=== PATIENT | male | born 1980 | race Caucasian/White ===

== ENCOUNTER 2019-06-28 12:49 | Emergency (ER) | payer OTHER, SELFPAY ==
[2019-06-28 13:04] VITALS: BP 132/76; PULSE 64; RESP 16; TEMP 36.6; O2SAT 99
--- NOTE | 2019-06-28 13:25 | ED.URI ---
HPI - URI/Sore Throat General Chief Complaint: Upper Respiratory Infection Stated Complaint: Cold/Flu symptoms History of Present Illness HPI Narrative: This is a 35-year-old old male comes in complaining body aches sore throat and fever off and on since . Patient states last week his son had influenza B is wondering if he had influenza or if he had sinus infection. Related Data Home Medications Medication Instructions Recorded Confirmed atorvastatin 10 mg PO DAILY 06/28/19 06/28/19 levothyroxine 150 mcg PO DAILY 06/28/19 06/28/19 metoprolol tartrate 50 mg PO DAILY 06/28/19 06/28/19 Allergies Allergy/AdvReac Type Severity Reaction Status Date / Time No Known Allergies Allergy Unknown X Verified 06/28/19 13:30 Review of Systems Review of Systems: Narrative: CONSTITUTIONAL: Reports s fever, chills, or sweats. Fatigue and malaise EYES: Denies visual changes, redness, or discharge. ENT: Reports rhinorrhea, congestion, sore throat, or otalgia. CARDIOVASCULAR:Denies chest pain, palpitations, or edema. RESPIRATORY: Reports cough or dyspnea. GASTROINTESTINAL: Denies abdominal pain, nausea, vomiting, or diarrhea. GENITOURINARY: Denies dysuria or hematuria. SKIN:[Denies rash or itching. MUSCULOSKELETAL:Denies back pain, joint pain, or myalgia. NEUROLOGIC: Denies headache, numbness, or weakness. PSYCHIATRIC:Denies anxiety or depression PMFSH Family History Family History (Updated 04/03/18 @ 10:24 by DOCTOR UNKNOWN) Mother Family history of thyroid disease Family history of elevated blood lipids Father Diabetes mellitus Hypertension Family history of elevated blood lipids Other Family history of malignant neoplasm Social History Social History Smoking status: Former smoker Alcohol intake: current Comments At time as signature, I have reviewed and agree with nursing past medical, social, surgical and family history. Please see nursing chart for further information. There is no relevant family history pertinent to the presenting complaint. Exam Narrative: Exam Narrative: GENERAL:Well-appearing, well-nourished, and in no acute distress. Malaise and fatigue HEAD:Normocephalic, atraumatic. EYES: PERRLA and EOMI. ENT: Nares erythema, moderate clear rhinorrhea or epistaxis. Mucous membranes moist. Pharyngeal erythema NECK: Supple. CHEST: Clear to auscultation. No respiratory distress. HEART: Regular rate and rhythm. No murmur heard. Normal peripheral pulses. ABDOMEN: Soft, nontender, nondistended, normal active bowel sounds. EXTREMITIES: Normal range of motion. No edema. SKIN: Warm, dry, no rash. NEURO: No focal deficits. Alert and oriented x3. Course Vital Signs Vital signs: Vital Signs Temperature 97.9 F 06/28/19 13:04 Pulse Rate 64 06/28/19 13:04 Respiratory Rate 16 06/28/19 13:04 Blood Pressure 132/76 06/28/19 13:04 Pulse Oximetry 99 06/28/19 13:04 Temperature 97.9 F 06/28/19 13:04 Pulse Rate 64 06/28/19 13:04 Respiratory Rate 16 06/28/19 13:04 Blood Pressure 132/76 06/28/19 13:04 Pulse Oximetry 99 06/28/19 13:04 Discharge Plan Discharge Clinical Impression: Influenza Patient Disposition: Home, Self-Care Condition: Stable Instructions: Antibiotic Form, Influenza (ED) Prescriptions: New ondansetron 4 mg tablet,disintegrating 4 mg PO Q8H PRN (Reason: nausea and vomiting) Qty: 10 RF: 0 ibuprofen 800 mg tablet 800 mg PO TID PRN (Reason: pain) Qty: 30 RF: 0 No Action atorvastatin 10 mg Tablet 10 mg PO DAILY RF: 0 levothyroxine 150 mcg Tablet 150 mcg PO DAILY RF: 0 metoprolol tartrate 50 mg Tablet 50 mg PO DAILY RF: 0 Follow-up/Referrals: Guillermina De La Paz MD [Primary Care Provider] - Stand Alone Forms: Work/School Release IP Time of Disposition: 13:30 Discharge Date/Time: 06/28/19 13:34
== END 2019-06-28 13:34 | disposition home or self-care (01) ==
PROVIDERS: Emergency Provider Nurse Practitioner Family; PCP Internal Medicine
DX: J11.1 Influenza due to unidentified influenza virus with other respiratory manifestations (principal); Z87.891 Personal history of nicotine dependence
CPT/HCPCS: 87804; 99213; G0463

== ENCOUNTER 2019-09-11 08:18 | Outpatient (CLI) | payer OTHER, SELFPAY ==
[2019-09-11 08:34] LABS: Add Urine Microscopic? YES; Appearance Urine Clear (Clear); Bilirubin Urine Negative (Negative); Blood Urine 1+ (Negative); Color Urine Yellow (Yellow); Glucose Urine UA Negative (Negative); Ketones Urine Negative (Negative); Leukocyte Esterase Ur Negative LEU/UL (Negative); Nitrate Urine Negative (Negative); Protein Urine Negative (Negative); Specific Grav Ur >= 1.030 (1.010-1.020); Urobilinogen Urine 0.2 mg/dL (0.2-1.0); pH Urine 5.5 (5.0-8.0)
[2019-09-11 08:46] LABS: Bacteria Urine 2+ /hpf; Mucus Urine Few /lpf; Squamous Epithelial Cell Urine Few /hpf (Few); WBC Urine 0-3 /hpf (0-3)
[2019-09-11 09:05] LABS: Hemoglobin A1C 5.5 % (<5.7)
[2019-09-11 09:31] LABS: Alanine Aminotransferase 78 U/L (16-63); Albumin Level 4.3 g/dL (3.4-5.0); Alkaline Phosphatase 56 U/L (46-116); Anion Gap 14.3 mmol/L (7-16); Aspartate Amino Transferase 36 U/L (15-37); Bilirubin,Total 0.4 mg/dL (0.00-1.00); Blood Urea Nitrogen 22 mg/dL (7-18); Calcium 9.3 mg/dL (8.5-10.1); Carbon Dioxide 28 mmol/L (21-32); Chloride 106 mmol/L (98-108); Cholesterol 153 mg/dL (0-200); Creatine Kinase 568 U/L (39-308); Estimated Glomerular Filt Rate > 60; Glucose 95 mg/dL (70-99); HDL Direct 28 mg/dL (40-60); LDL Cholesterol Calculated 91 mg/dL (<130); Osmolality Calculated 301 mOsm/kg (285-295); Potassium 4.3 mmol/L (3.5-5.1); Sodium 144 mmol/L (136-145); Total Protein 6.9 g/dL (6.4-8.2); Triglycerides 169 mg/dL (0-150)
== END 2019-09-11 08:19 | disposition home or self-care (01) ==
LOC: CHSLAB 08:20
PROVIDERS: PCP Internal Medicine; Visit Provider Internal Medicine
DX: E03.9 Hypothyroidism, unspecified (principal); E78.5 Hyperlipidemia, unspecified; R73.01 Impaired fasting glucose
CPT/HCPCS: 36415; 80053; 80061; 81001; 82550; 83036

== ENCOUNTER 2020-01-29 09:38 | Outpatient (CLI) | payer OTHER, SELFPAY ==
[2020-01-29 10:28] LABS: Cholesterol 114 mg/dL (0-200); HDL Direct 38 mg/dL (40-60); LDL Cholesterol Calculated 54 mg/dL (<130); Triglycerides 108 mg/dL (0-150)
== END 2020-01-29 09:39 | disposition home or self-care (01) ==
LOC: CHSLAB 09:39
PROVIDERS: PCP Internal Medicine; Visit Provider Specialist
DX: I25.118 Atherosclerotic heart disease of native coronary artery with other forms of angina pectoris (principal); Z13.220 Encounter for screening for lipoid disorders; Z79.899 Other long term (current) drug therapy
CPT/HCPCS: 36415; 80061

== ENCOUNTER 2020-10-24 11:10 | Outpatient (CLI) | payer OTHER, SELFPAY ==
[2020-10-24 11:28] LABS: Basophils Absolute Auto 0.02 K/mm3 (0.00-0.10); Basophils Percent Auto 0.4 % (0.0-1.0); Eosinophils Absolute Auto 0.27 K/mm3 (0.02-0.50); Eosinophils Percent Auto 5.4 % (1.0-6.0); Hematocrit 44.6 % (40.0-54.0); Hemoglobin 15.6 g/dL (14.0-18.0); Immature Granulocyte Absolute 0.02 K/mm3 (0.00-0.00); Immature Granulocyte Percent A 0.4 % (0.0-0.0); Lymphocytes Absolute Auto 1.65 K/mm3 (1.10-4.50); Lymphocytes Percent Auto 32.8 % (18.0-42.0); Mean Corpuscular Hemoglobin 29.5 pg (27.0-31.0); Mean Corpuscular Volume 84.3 fL (78.0-102.0); Monocytes Absolute Auto 0.42 K/mm3 (0.10-0.90); Monocytes Percent Auto 8.3 % (2.0-11.0); Neutrophils Absolute Auto 2.7 K/mm3 (1.7-7.2); Neutrophils Percent Auto 52.7 % (50.0-70.0); Platelet Count Result 220 K/mm3 (150-420); Red Blood Count 5.29 M/mm3 (4.70-6.10); Red Cell Distribution Width 12.3 % (11.6-14.4)
[2020-10-24 11:47] LABS: Hemoglobin A1C 5.4 % (<5.7)
[2020-10-24 12:08] LABS: Alanine Aminotransferase 67 U/L (16-63); Albumin Level 4.3 g/dL (3.4-5.0); Alkaline Phosphatase 46 U/L (46-116); Anion Gap 13 mmol/L (8-16); Aspartate Amino Transferase 32 U/L (15-37); Bilirubin,Total 0.8 mg/dL (0.00-1.00); Blood Urea Nitrogen 18 mg/dL (7-18); Calcium 9.4 mg/dL (8.5-10.1); Carbon Dioxide 27 mmol/L (21-32); Chloride 105 mmol/L (98-108); Cholesterol 138 mg/dL (0-200); Creatine Kinase 507 U/L (39-308); Estimated Glomerular Filt Rate > 60; Glucose 95 mg/dL (70-99); HDL Direct 34 mg/dL (40-60); LDL Cholesterol Calculated 61 mg/dL (<130); Osmolality Calculated 301 mOsm/kg (285-295); Potassium 4.5 mmol/L (3.5-5.1); Sodium 145 mmol/L (136-145); Triglycerides 213 mg/dL (0-150)
== END 2020-10-24 11:11 | disposition home or self-care (01) ==
LOC: CHSLAB 11:13
PROVIDERS: PCP Internal Medicine; Visit Provider Specialist
DX: E78.5 Hyperlipidemia, unspecified (principal); Z13.220 Encounter for screening for lipoid disorders; Z79.899 Other long term (current) drug therapy; E03.9 Hypothyroidism, unspecified; R73.01 Impaired fasting glucose
CPT/HCPCS: 36415; 80053; 80061; 82550; 83036; 85025

== ENCOUNTER 2021-04-19 11:28 | Outpatient (CLI) | payer OTHER, SELFPAY ==
[2021-04-19 11:42] LABS: Basophils Absolute Auto 0.04 K/mm3 (0.00-0.10); Basophils Percent Auto 0.7 % (0.0-1.0); Eosinophils Absolute Auto 0.34 K/mm3 (0.02-0.50); Eosinophils Percent Auto 5.6 % (1.0-6.0); Hematocrit 43.1 % (40.0-54.0); Hemoglobin 14.8 g/dL (14.0-18.0); Immature Granulocyte Absolute 0.02 K/mm3 (0.00-0.00); Immature Granulocyte Percent A 0.3 % (0.0-0.0); Lymphocytes Absolute Auto 1.66 K/mm3 (1.10-4.50); Lymphocytes Percent Auto 27.3 % (18.0-42.0); Mean Corpuscular HGB Conc 34.3 g/dL (32.0-36.0); Mean Corpuscular Hemoglobin 29.8 pg (27.0-31.0); Mean Corpuscular Volume 86.7 fL (78.0-102.0); Mean Platelet Volume 10.3 fl (8.7-11.0); Monocytes Absolute Auto 0.49 K/mm3 (0.10-0.90); Monocytes Percent Auto 8.1 % (2.0-11.0); Neutrophils Absolute Auto 3.5 K/mm3 (1.7-7.2); Platelet Count Result 224 K/mm3 (150-420); Red Blood Count 4.97 M/mm3 (4.70-6.10); Red Cell Distribution Width 12.1 % (11.6-14.4); White Blood Count 6.1 K/mm3 (4.8-10.8)
[2021-04-19 11:47] LABS: Add Urine Microscopic? YES; Appearance Urine Clear (Clear); Bilirubin Urine Negative (Negative); Blood Urine 1+ (Negative); Color Urine Yellow (Yellow); Glucose Urine UA Negative (Negative); Ketones Urine Negative (Negative); Leukocyte Esterase Ur Negative LEU/UL (Negative); Nitrate Urine Negative (Negative); Protein Urine Negative (Negative); Specific Grav Ur >= 1.030 (1.010-1.020); Urobilinogen Urine 0.2 mg/dL (0.2-1.0)
[2021-04-19 11:56] LABS: Bacteria Urine Trace /hpf; Mucus Urine Few /lpf; Squamous Epithelial Cell Urine Rare /hpf (Few); WBC Urine None seen /hpf (0-3)
[2021-04-19 11:58] LABS: Hemoglobin A1C 5.6 % (<5.7)
[2021-04-19 12:23] LABS: Alanine Aminotransferase 84 U/L (16-63); Albumin Level 3.9 g/dL (3.4-5.0); Alkaline Phosphatase 46 U/L (46-116); Anion Gap 9 mmol/L (8-16); Aspartate Amino Transferase 32 U/L (15-37); Bilirubin,Total 0.5 mg/dL (0.00-1.00); Blood Urea Nitrogen 17 mg/dL (7-18); Calcium 8.8 mg/dL (8.5-10.1); Carbon Dioxide 26 mmol/L (21-32); Chloride 106 mmol/L (98-108); Cholesterol 121 mg/dL (0-200); Estimated Glomerular Filt Rate > 60; Free T3 2.87 pg/mL (2.18-3.98); Free T4 Free Thyroxine 0.95 ng/dL (0.76-1.46); Glucose 111 mg/dL (70-99); HDL Direct 32 mg/dL (40-60); LDL Cholesterol Calculated 36 mg/dL (<130); Osmolality Calculated 294 mOsm/kg (285-295); Potassium 4.2 mmol/L (3.5-5.1); Sodium 141 mmol/L (136-145); Thyroid Stimulating Hormone 0.55 uIU/mL (0.36-3.74); Total Protein 6.4 g/dL (6.4-8.2); Triglycerides 266 mg/dL (0-150)
== END 2021-04-19 11:29 | disposition home or self-care (01) ==
LOC: CHSLAB 11:29
PROVIDERS: PCP Internal Medicine; Visit Provider Internal Medicine
DX: E03.4 Atrophy of thyroid (acquired) (principal); E78.2 Mixed hyperlipidemia; R73.01 Impaired fasting glucose
CPT/HCPCS: 36415; 80053; 80061; 81001; 83036; 84439; 84443; 84481; 85025

== ENCOUNTER 2021-10-19 12:45 | Outpatient (CLI) | payer OTHER, SELFPAY ==
[2021-10-19 13:16] LABS: Alanine Aminotransferase 88 U/L (16-63); Albumin Level 4.3 g/dL (3.4-5.0); Alkaline Phosphatase 51 U/L (46-116); Anion Gap 6 mmol/L (8-16); Aspartate Amino Transferase 39 U/L (15-37); Bilirubin,Total 0.6 mg/dL (0.00-1.00); Blood Urea Nitrogen 19 mg/dL (7-18); Carbon Dioxide 27 mmol/L (21-32); Chloride 106 mmol/L (98-108); Creatine Kinase 405 U/L (39-308); Estimated Glomerular Filt Rate > 60; Glucose 107 mg/dL (70-99); Osmolality Calculated 290 mOsm/kg (285-295); Potassium 4.2 mmol/L (3.5-5.1); Sodium 139 mmol/L (136-145); Total Protein 7.2 g/dL (6.4-8.2)
[2021-10-19 13:18] LABS: Hemoglobin A1C 5.5 % (<5.7)
== END 2021-10-19 12:46 | disposition home or self-care (01) ==
LOC: CHSLAB 12:47
PROVIDERS: PCP Internal Medicine; Visit Provider Internal Medicine
DX: R73.01 Impaired fasting glucose (principal)
CPT/HCPCS: 36415; 80053; 82550; 83036

== ENCOUNTER 2021-12-07 08:08 | Outpatient (CLI) | payer OTHER, SELFPAY ==
[2021-12-07 08:58] LABS: Cholesterol 151 mg/dL (0-200); HDL Direct 31 mg/dL (40-60); LDL Cholesterol Calculated 57 mg/dL (<130); Triglycerides 316 mg/dL (0-150)
== END 2021-12-07 08:09 | disposition home or self-care (01) ==
LOC: CHSLAB 08:11
PROVIDERS: PCP Internal Medicine; Visit Provider Specialist
DX: Z13.220 Encounter for screening for lipoid disorders (principal); I25.118 Atherosclerotic heart disease of native coronary artery with other forms of angina pectoris; E78.5 Hyperlipidemia, unspecified
CPT/HCPCS: 36415; 80061

== ENCOUNTER 2022-03-04 07:53 | Outpatient (CLI) | payer OTHER, SELFPAY ==
[2022-03-04 09:32] LABS: Alanine Aminotransferase 102 U/L (16-63); Albumin Level 4.2 g/dL (3.4-5.0); Alkaline Phosphatase 48 U/L (46-116); Anion Gap 9 mmol/L (8-16); Aspartate Amino Transferase 57 U/L (15-37); Bilirubin,Total 0.5 mg/dL (0.00-1.00); Blood Urea Nitrogen 16 mg/dL (7-18); Carbon Dioxide 28 mmol/L (21-32); Chloride 105 mmol/L (98-108); Cholesterol 127 mg/dL (0-200); Estimated Glomerular Filt Rate 58; Free T4 Free Thyroxine 1.05 ng/dL (0.76-1.46); Glucose 92 mg/dL (70-99); HDL Direct 38 mg/dL (40-60); LDL Cholesterol Calculated 60 mg/dL (<130); Osmolality Calculated 295 mOsm/kg (285-295); Potassium 4.3 mmol/L (3.5-5.1); Sodium 142 mmol/L (136-145); Thyroid Stimulating Hormone 2.76 uIU/mL (0.36-3.74); Total Protein 6.9 g/dL (6.4-8.2); Triglycerides 145 mg/dL (0-150)
[2022-03-07 12:25] LABS: Creatine Kinase 864 U/L (39-308)
== END 2022-03-04 07:54 | disposition home or self-care (01) ==
LOC: CHSLAB 07:55
PROVIDERS: PCP Internal Medicine; Visit Provider Internal Medicine
DX: R94.5 Abnormal results of liver function studies (principal); E78.2 Mixed hyperlipidemia; E03.4 Atrophy of thyroid (acquired)
CPT/HCPCS: 36415; 80053; 80061; 82550; 84439; 84443

== ENCOUNTER 2022-04-17 10:01 | Outpatient (CLI) | payer OTHER, SELFPAY ==
[2022-04-17 10:32] LABS: Anion Gap 8 mmol/L (8-16); Blood Urea Nitrogen 16 mg/dL (7-18); Calcium 8.8 mg/dL (8.5-10.1); Carbon Dioxide 28 mmol/L (21-32); Chloride 104 mmol/L (98-108); Creatine Kinase 902 U/L (39-308); Estimated Glomerular Filt Rate > 60; Glucose 111 mg/dL (70-99); Osmolality Calculated 292 mOsm/kg (285-295); Potassium 4.3 mmol/L (3.5-5.1); Sodium 140 mmol/L (136-145)
== END 2022-04-17 10:02 | disposition home or self-care (01) ==
LOC: CHSLAB 10:02
PROVIDERS: PCP Internal Medicine; Visit Provider Internal Medicine
DX: E78.5 Hyperlipidemia, unspecified (principal); R79.89 Other specified abnormal findings of blood chemistry
CPT/HCPCS: 36415; 80048; 82550

== ENCOUNTER 2022-05-21 10:27 | Outpatient (CLI) | payer OTHER, SELFPAY ==
[2022-05-21 11:17] LABS: Creatine Kinase 616 U/L (39-308)
== END 2022-05-21 10:28 | disposition home or self-care (01) ==
LOC: CHSLAB 10:28
PROVIDERS: PCP Internal Medicine; Visit Provider Internal Medicine
DX: R79.89 Other specified abnormal findings of blood chemistry (principal)
CPT/HCPCS: 36415; 82550

== ENCOUNTER 2022-06-24 15:27 | Emergency (ER) | payer OTHER, SELFPAY ==
[2022-06-24 15:30] VITALS: BP 119/73; PULSE 75; RESP 20; TEMP 36.6; O2SAT 96
--- NOTE | 2022-06-24 15:58 | ED.URI ---
HPI - URI/Sore Throat General Chief Complaint: Upper Respiratory Infection Stated Complaint: Sore Throat Time Seen by Provider: 06/24/22 15:59 History of Present Illness HPI Narrative: 41-year-old male presented for complaint of sore throat worsening since last night. He denies any associated symptoms. He took DayQuil for symptoms this morning. He reports contact with children with strep throat. Related Data Home Medications Medication Instructions Recorded Confirmed atorvastatin 10 mg tablet 10 mg PO DAILY 06/28/19 06/28/19 levothyroxine 150 mcg tablet 150 mcg PO DAILY 06/28/19 06/28/19 metoprolol tartrate 50 mg tablet 50 mg PO DAILY 06/28/19 06/28/19 Allergies Allergy/AdvReac Type Severity Reaction Status Date / Time No Known Allergies Allergy Unknown X Verified 06/28/19 13:30 Review of Systems Review of Systems: CONSTITUTIONAL: Denies body aches, fever, chills, or sweats. EYES: Denies visual changes, redness, or discharge. ENT: Denies rhinorrhea, congestion, or otalgia. CARDIOVASCULAR: Denies chest pain, palpitations, or edema. RESPIRATORY: Denies dyspnea. GASTROINTESTINAL: Denies abdominal pain, nausea, vomiting, or diarrhea. SKIN: Denies rash, itching, or wounds. MUSCULOSKELETAL: Denies back pain, joint pain, or myalgia. NEUROLOGIC: Denies headache [facility] Past Medical History Medical History (Updated 06/24/22 @ 16:07 by Ana Vyas APRN) CAD in [place] artery Hypothyroid Family History Family History Mother Family history of thyroid disease Family history of elevated blood lipids Father Diabetes mellitus Hypertension Family history of elevated blood lipids Other Family history of malignant neoplasm Social History Social History Smoking status: Former smoker Alcohol intake: current Exam Narrative: GENERAL: well-appearing, no acute distress. EYES: conjunctivae clear ENT: Mucous membranes moist. TMs pearly franc[place] with normal light reflex bilaterally; no tragal tenderness. Oropharynx erythematous without lesions. Tonsils enlarged 1+ without exudate. No drooling, no hoarseness, no trismus, uvula midline. No tripod positioning, hot potato voice, or soft palate swelling. NECK: Supple. No lymphadenopathy CHEST: Clear to auscultation, breath sounds equal. HEART: Regular rate and rhythm. No murmur heard. SKIN: Warm, dry, no rash. NEURO: Alert and oriented x3. Course Course Emergency Course: Patient is aware of diagnosis, understands and agrees to treatment plan. Anticipatory guidance given. Patient agrees to follow-up as directed and is aware of reasons to seek care at the emergency department. Portions of this record may have been created with voice recognition software Level of Care: Express Care Visit Vital Signs Vital signs: Vital Signs Temperature 97.9 F 06/24/22 15:30 Pulse Rate 75 06/24/22 15:30 Respiratory Rate 20 06/24/22 15:30 Blood Pressure 119/73 06/24/22 15:30 Pulse Oximetry 96 06/24/22 15:30 Oxygen Delivery Room Air 06/24/22 15:30 Temperature 97.9 F 06/24/22 15:30 Pulse Rate 75 06/24/22 15:30 Respiratory Rate 20 06/24/22 15:30 Blood Pressure 119/73 06/24/22 15:30 Pulse Oximetry 96 06/24/22 15:30 Oxygen Delivery Room Air 06/24/22 15:30 MDM - URI/Sore Throat MDM Narrative Medical decision making narrative: strep result reviewed with pt. Advise supportive treatments. Patient is appropriate for outpatient treatment and follow-up. Differential Diagnosis Differential diagnosis: Likely upper respiratory infection, viral infection and pharyngitis Lab Data Labs: Strep Screen Presumptive Negative *(Reference Range: Negative)* Discharge Plan Discharge Clinical Impression: Pharyngitis Patient Disposition: Home, Self-Care
== END 2022-06-24 16:10 | disposition home or self-care (01) ==
PROVIDERS: Emergency Provider Nurse Practitioner Family; PCP Internal Medicine
DX: J02.9 Acute pharyngitis, unspecified (principal); Z87.891 Personal history of nicotine dependence; E03.9 Hypothyroidism, unspecified; I25.10 Atherosclerotic heart disease of native coronary artery without angina pectoris
CPT/HCPCS: 87081; 87880; 99213; G0463

== ENCOUNTER 2022-07-05 12:46 | Outpatient (CLI) | payer OTHER, SELFPAY ==
[2022-07-05 13:30] LABS: Hemoglobin A1C 5.4 % (<5.7)
[2022-07-05 13:47] LABS: Alanine Aminotransferase 99 U/L (16-63); Albumin Level 4.2 g/dL (3.4-5.0); Alkaline Phosphatase 53 U/L (46-116); Anion Gap 8 mmol/L (8-16); Aspartate Amino Transferase 39 U/L (15-37); Bilirubin,Total 0.7 mg/dL (0.00-1.00); Blood Urea Nitrogen 12 mg/dL (7-18); Calcium 9.1 mg/dL (8.5-10.1); Carbon Dioxide 29 mmol/L (21-32); Chloride 105 mmol/L (98-108); Cholesterol 145 mg/dL (0-200); Estimated Glomerular Filt Rate > 60; Glucose 104 mg/dL (70-99); HDL Direct 33 mg/dL (40-60); LDL Cholesterol Calculated 68 mg/dL (<130); Osmolality Calculated 293 mOsm/kg (285-295); Potassium 4.2 mmol/L (3.5-5.1); Sodium 142 mmol/L (136-145); Triglycerides 220 mg/dL (0-150)
== END 2022-07-05 12:47 | disposition home or self-care (01) ==
LOC: CHSLAB 12:48
PROVIDERS: PCP Internal Medicine; Visit Provider Internal Medicine
DX: E78.2 Mixed hyperlipidemia (principal); R73.01 Impaired fasting glucose
CPT/HCPCS: 36415; 80053; 80061; 83036

== ENCOUNTER 2022-07-15 07:55 | Outpatient (CLI) | payer OTHER, SELFPAY ==
--- NOTE | ~2022-07-15 | US_ITS ---
Limited Abdominal Sonogram: Real-time sonographic imaging of the right upper quadrant was performed. Clinical History: Abnormal liver enzymes Findings: The liver appears echogenic, with no evidence of bile duct dilatation. Focal hypoechoic ar ea adjacent to the gallbladder fossa probably represents focal fatty sparing. Main portal vein demons trates normal direction of flow. The gallbladder is well distended, and appears normal with no eviden ce of gallstone or wall thickening. The common bile duct measures 3 mm. The visualized pancreas, aor ta, and IVC are unremarkable. Impression: Diffuse fatty infiltration of liver with probable focal fatty sparing near the gallbladder fossa. Reviewed, dictated and finalized at location M. Impression: Diffuse fatty infiltration of liver with probable focal fatty sparing near the gallbladder fossa.
[2022-07-15 09:04] LABS: Ferritin 307 ng/mL (26-388); Iron 94 ug/dL (65-175)
[2022-07-17 20:02] LABS: Actin Antibody (IgG) <20 U (<20)
[2022-07-18 11:28] LABS: Mitochondrial (M2) Ab (IgG) <=20.0 U (<=20.0)
[2022-07-19 03:00] LABS: Hepatitis B Surface Antibody Nonreactive (Nonreactive); Hepatitis C Signal to Cutoff 0.01 ratio (<1.00); Hepatitis C Virus Antibody Nonreactive (Nonreactive)
[2022-07-19 10:43] LABS: Ceruloplasmin 16 mg/dL (18-36)
== END 2022-07-15 07:56 | disposition home or self-care (01) ==
LOC: CHSIMG 07:56
PROVIDERS: PCP Internal Medicine; Visit Provider Internal Medicine
DX: R74.01 Elevation of levels of liver transaminase levels (principal); K76.0 Fatty (change of) liver, not elsewhere classified
CPT/HCPCS: 36415; 76705; 82390; 82728; 83516; 83520; 83540; 86038; 86706; 86803

== ENCOUNTER 2022-07-31 12:53 | Outpatient (CLI) | payer OTHER, SELFPAY | END 2022-07-31 12:54 | disposition home or self-care (01) | LOC: CHSLAB 12:55 | PROVIDERS: PCP Internal Medicine; Visit Provider Internal Medicine | DX: E83.00 Disorder of copper metabolism, unspecified (principal) | CPT/HCPCS: 36415; 82525 ==

== ENCOUNTER 2023-01-31 08:23 | Outpatient (CLI) | payer OTHER, SELFPAY ==
[2023-01-31 08:37] LABS: Basophils Absolute Auto 0.04 K/mm3 (0.00-0.10); Basophils Percent Auto 0.6 % (0.0-1.0); Eosinophils Absolute Auto 0.34 K/mm3 (0.02-0.50); Eosinophils Percent Auto 5.4 % (1.0-6.0); Hematocrit 46.1 % (40.0-54.0); Hemoglobin 15.9 g/dL (14.0-18.0); Immature Granulocyte Absolute 0.02 K/mm3 (0.00-0.00); Immature Granulocyte Percent A 0.3 % (0.0-0.0); Lymphocytes Absolute Auto 1.97 K/mm3 (1.10-4.50); Lymphocytes Percent Auto 31.3 % (18.0-42.0); Mean Corpuscular HGB Conc 34.5 g/dL (32.0-36.0); Mean Platelet Volume 10.3 fl (8.7-11.0); Monocytes Absolute Auto 0.47 K/mm3 (0.10-0.90); Monocytes Percent Auto 7.5 % (2.0-11.0); Neutrophils Absolute Auto 3.5 K/mm3 (1.7-7.2); Neutrophils Percent Auto 54.9 % (50.0-70.0); Platelet Count Result 222 K/mm3 (150-420); Red Cell Distribution Width 11.9 % (11.6-14.4); White Blood Count 6.3 K/mm3 (4.8-10.8)
[2023-01-31 08:47] LABS: Hemoglobin A1C 5.5 % (<5.7)
[2023-01-31 09:28] LABS: Alanine Aminotransferase 87 U/L (16-63); Albumin Level 4.1 g/dL (3.4-5.0); Alkaline Phosphatase 59 U/L (46-116); Anion Gap 10 mmol/L (8-16); Aspartate Amino Transferase 35 U/L (15-37); Bilirubin,Total 0.6 mg/dL (0.00-1.00); Blood Urea Nitrogen 15 mg/dL (7-18); Carbon Dioxide 25 mmol/L (21-32); Chloride 105 mmol/L (98-108); Cholesterol 118 mg/dL (0-200); Creatine Kinase 443 U/L (39-308); Estimated Glomerular Filt Rate > 60; Free T3 2.86 pg/mL (2.18-3.98); Glucose 117 mg/dL (70-99); HDL Direct 33 mg/dL (40-60); LDL Cholesterol Calculated 46 mg/dL (<130); Osmolality Calculated 291 mOsm/kg (285-295); Potassium 4.3 mmol/L (3.5-5.1); Sodium 140 mmol/L (136-145); Thyroid Stimulating Hormone 2.15 uIU/mL (0.36-3.74); Total Protein 6.5 g/dL (6.4-8.2); Triglycerides 197 mg/dL (0-150)
== END 2023-01-31 08:24 | disposition home or self-care (01) ==
LOC: CHSLAB 08:24
PROVIDERS: PCP Internal Medicine; Visit Provider Internal Medicine
DX: N39.0 Urinary tract infection, site not specified (principal); R73.01 Impaired fasting glucose; E03.4 Atrophy of thyroid (acquired); E78.2 Mixed hyperlipidemia; R53.82 Chronic fatigue, unspecified
CPT/HCPCS: 36415; 80053; 80061; 82550; 83036; 84439; 84443; 84481; 85025

== ENCOUNTER 2023-03-07 13:58 | Emergency (ER) | payer OTHER, SELFPAY ==
[2023-03-07 13:58] VITALS: BP 136/84; PULSE 85; RESP 16; TEMP 36.7; O2SAT 98
--- NOTE | 2023-03-07 14:09 | ED.WOUNDLAC ---
HPI - Wound/Laceration General Chief Complaint: Wound/Laceration Stated Complaint: finger laceration Time Seen by Provider: 03/07/23 14:09 Source: patient and RN notes reviewed Mode of arrival: ambulatory Limitations: no limitations History of Present Illness Onset (ago): minute(s) (5) Extremity Location: Left: hand ( index finger) Place: home Patient tetanus UTD: No Context: accidental ( Patient was Gutting a deer) Associated symptoms: none Treatments prior to arrival: bandage Related Data Home Medications Medication Instructions Recorded Confirmed levothyroxine 150 mcg tablet 150 mcg PO DAILY 06/28/19 03/07/23 metoprolol tartrate 50 mg tablet 50 mg PO DAILY 06/28/19 03/07/23 alirocumab 75 mg/mL subcutaneous 75 mg subcut [id number] 03/07/23 03/07/23 pen injector (Praluent Pen) evolocumab 140 mg/mL subcutaneous 140 mg subcut [id number] 03/07/23 03/07/23 pen injector (Repatha SureClick) fenofibrate 54 mg tablet 54 mg PO DAILY 03/07/23 03/07/23 isosorbide mononitrate 30 mg 30 mg PO DAILY 03/07/23 03/07/23 tablet,extended release 24 hr Allergies Allergy/AdvReac Type Severity Reaction Status Date / Time Penicillins Allergy Unknown Verified 03/07/23 14:10 [facility] Past Medical History Medical History (Updated 03/07/23 @ 14:39 by Boris Cortes MD) Body mass index [BMI] 36.0-36.9, adult (05/25/18) CAD in [place] artery Dyslipidemia Hypothyroid Family History Family History Mother Family history of thyroid disease Family history of elevated blood lipids Father Diabetes mellitus Hypertension Family history of elevated blood lipids Other Family history of malignant neoplasm Social History Social History Smoking status: Former smoker Alcohol intake: current Exam Const: General: healthy appearing and no acute distress Nutritional Appearance: well nourished and obese Orientation/consciousness: patient oriented x3 Limitations: no limitations HENMT: Head: normal to inspection Ears: external ears normal Face/Nose/Sinus: Normal external nose present Face and sinus: normal facial exam Mouth: Yes moist mucous membranes Eyes: Conjunctivae: conjunctivae normal Pupils: Equal, round and reactive pupils present EOM: EOMs intact bilaterally Neck: Neck: normal visual inspection Resp: Effort & Inspection: normal respiratory effort Auscultation: clear to auscultation bilaterally Cardio: Rate: regular rate Rhythm: regular rhythm GI: GI Palp: Yes Soft to palpation and No Tenderness to palpation present (GI) Auscultation: normal bowel sounds Back/Spine/Pelvis: Cervical Spine: cervical ROM normal Thoracic/Lumbar Spine: thoraco-lumbar ROM normal Skin: General skin exam: normal color Wounds: wounds noted laceration right proximal 2nd finger size (2 cm) and margins well approximated Neuro: General: patient oriented x3, moves all extremities, no focal motor deficits and CN's II-XI intact bilaterally Speech: normal speech Gait exam (Neuro): Normal gait present Extrem: General: normal to inspection and no clubbing, cyanosis or edema Psych: Mental Status: mental status grossly normal Affect: normal affect Attitude: cooperative Procedures Laceration Laceration 1: Date: 03/07/23 Site: hand Side (If applicable): right ( index finger) Description: linear Depth: simple, single layer Local Anesthetic: lidocaine 1% Pre-repair: wound explored and irrigated ====== Skin Level ====== Skin layer closed with: nylon Size (cm): 4-0 Number of sutures: 6 Technique: running ====== Subcutaneous Layer ====== ====== Muscle Layer ====== ====== Tendon Layer ====== Dressing: triple antibiotic and tube gauze MDM - Wound/Laceration Differential Diagnosis Differential diagnosis: Likely laceration Discha
[2023-03-07] MEDS: TETANUS,DIPHTHERIA,AC PERTUSSIS ADULT 0.5 ML (ADACEL) IM (14:25)
[2023-03-07 14:46] VITALS: BP 132/82; PULSE 80; RESP 20; TEMP 36.8; O2SAT 98
== END 2023-03-07 14:51 | disposition home or self-care (01) ==
LOC: CHSED 14:42
PROVIDERS: Emergency Provider Emergency Medicine; PCP Internal Medicine
DX: S61.211A Laceration without foreign body of left index finger without damage to nail, initial encounter (principal); I25.10 Atherosclerotic heart disease of native coronary artery without angina pectoris; E03.9 Hypothyroidism, unspecified; E78.5 Hyperlipidemia, unspecified; Z79.899 Other long term (current) drug therapy; Z87.891 Personal history of nicotine dependence; Z23 Encounter for immunization; W26.0XXA Contact with knife, initial encounter
CPT/HCPCS: 12001; 90715; 99283

== ENCOUNTER 2023-09-03 08:30 | Outpatient (CLI) | payer OTHER, SELFPAY ==
[2023-09-03 08:45] LABS: Basophils Absolute Auto 0.04 K/mm3 (0.00-0.10); Basophils Percent Auto 0.6 % (0.0-1.0); Eosinophils Absolute Auto 0.32 K/mm3 (0.02-0.50); Eosinophils Percent Auto 5.1 % (1.0-6.0); Hematocrit 47.5 % (40.0-54.0); Immature Granulocyte Absolute 0.02 K/mm3 (0.00-0.00); Immature Granulocyte Percent A 0.3 % (0.0-0.0); Lymphocytes Absolute Auto 2.07 K/mm3 (1.10-4.50); Lymphocytes Percent Auto 33.2 % (18.0-42.0); Mean Corpuscular HGB Conc 33.7 g/dL (32-36); Mean Corpuscular Hemoglobin 29.3 pg (27.0-31.0); Mean Platelet Volume 10.4 fl (8.7-11.0); Monocytes Absolute Auto 0.48 K/mm3 (0.10-0.90); Monocytes Percent Auto 7.7 % (2.0-11.0); Neutrophils Percent Auto 53.1 % (50.0-70.0); Platelet Count Result 237 K/mm3 (150-420); Red Blood Count 5.46 M/mm3 (4.70-6.10); Red Cell Distribution Width 12.3 % (11.6-14.4); White Blood Count 6.2 K/mm3 (4.8-10.8)
[2023-09-03 08:55] LABS: Hemoglobin A1C 5.6 % (<5.7)
[2023-09-03 09:23] LABS: Appearance Urine Clear (Clear); Bilirubin Urine Negative (Negative); Blood Urine Negative (Negative); Color Urine Yellow (Yellow); Glucose Urine UA Negative (Negative); Ketones Urine Negative (Negative); Leukocyte Esterase Ur Negative LEU/UL (Negative); Nitrate Urine Negative (Negative); Protein Urine Negative (Negative); Specific Grav Ur >= 1.030 (1.010-1.020); Urobilinogen Urine 0.2 mg/dL (0.2-1.0)
[2023-09-03 09:30] LABS: Add Urine Microscopic? NO
[2023-09-03 09:32] LABS: Alanine Aminotransferase 98 U/L (16-63); Albumin Level 4.2 g/dL (3.4-5.0); Alkaline Phosphatase 34 U/L (46-116); Anion Gap 7 mmol/L (4-12); Aspartate Amino Transferase 46 U/L (15-37); Bilirubin,Total 0.7 mg/dL (0.00-1.00); Blood Urea Nitrogen 18 mg/dL (7-18); Calcium 9.5 mg/dL (8.5-10.1); Carbon Dioxide 32 mmol/L (21-32); Chloride 104 mmol/L (98-108); Cholesterol 120 mg/dL (0-200); Estimated Glomerular Filt Rate 52; Free T4 Free Thyroxine 1.09 ng/dL (0.76-1.46); Glucose 101 mg/dL (70-99); HDL Direct 38 mg/dL (40-60); LDL Cholesterol Calculated 39 mg/dL (<130); Osmolality Calculated 297 mOsm/kg (285-295); Potassium 4.5 mmol/L (3.5-5.1); Sodium 143 mmol/L (136-145); Thyroid Stimulating Hormone 1.34 uIU/mL (0.36-3.74); Total Protein 6.9 g/dL (6.4-8.2); Triglycerides 214 mg/dL (0-150)
== END 2023-09-03 08:31 | disposition home or self-care (01) ==
LOC: CHSLAB 08:32
PROVIDERS: PCP Internal Medicine; Visit Provider Internal Medicine
DX: E03.4 Atrophy of thyroid (acquired) (principal); E78.2 Mixed hyperlipidemia; R73.01 Impaired fasting glucose; N39.0 Urinary tract infection, site not specified
CPT/HCPCS: 36415; 80053; 80061; 81003; 83036; 84439; 84443; 84481; 85025

== ENCOUNTER 2024-03-23 09:59 | Outpatient (CLI) | payer OTHER, SELFPAY ==
[2024-03-23 10:32] LABS: Basophils Absolute Auto 0.02 K/mm3 (0.00-0.10); Basophils Percent Auto 0.4 % (0.0-1.0); Eosinophils Absolute Auto 0.25 K/mm3 (0.02-0.50); Eosinophils Percent Auto 4.8 % (1.0-6.0); Hemoglobin 15.3 g/dL (14.0-18.0); Immature Granulocyte Absolute 0.02 K/mm3 (0.00-0.00); Immature Granulocyte Percent A 0.4 % (0.0-0.0); Lymphocytes Absolute Auto 1.73 K/mm3 (1.10-4.50); Lymphocytes Percent Auto 33.3 % (18.0-42.0); Mean Corpuscular HGB Conc 34.8 g/dL (32-36); Mean Corpuscular Hemoglobin 29.4 pg (27.0-31.0); Mean Corpuscular Volume 84.6 fL (78.0-102.0); Mean Platelet Volume 10.3 fl (8.7-11.0); Monocytes Absolute Auto 0.47 K/mm3 (0.10-0.90); Neutrophils Absolute Auto 2.71 K/mm3 (1.70-7.20); Neutrophils Percent Auto 52.1 % (50.0-70.0); Platelet Count Result 230 K/mm3 (150-420); Red Cell Distribution Width 12.1 % (11.6-14.4); White Blood Count 5.2 K/mm3 (4.8-10.8)
[2024-03-23 10:33] LABS: Add Urine Microscopic? NO; Appearance Urine Clear (Clear); Bilirubin Urine Negative (Negative); Blood Urine Negative (Negative); Color Urine Light Yellow (Yellow); Glucose Urine UA Negative (Negative); Ketones Urine Negative (Negative); Leukocyte Esterase Ur Negative LEU/UL (Negative); Nitrate Urine Negative (Negative); Protein Urine Negative (Negative); Specific Grav Ur 1.015 (1.010-1.020); Urobilinogen Urine 0.2 mg/dL (0.2-1.0)
[2024-03-23 10:59] LABS: Hemoglobin A1C 5.5 % (<5.7)
[2024-03-23 11:37] LABS: Alanine Aminotransferase 93 U/L (16-63); Albumin Level 4.4 g/dL (3.4-5.0); Alkaline Phosphatase 47 U/L (46-116); Anion Gap 6 mmol/L (4-12); Aspartate Amino Transferase 53 U/L (15-37); Bilirubin,Total 0.6 mg/dL (0.00-1.00); Blood Urea Nitrogen 19 mg/dL (7-18); Calcium 9.6 mg/dL (8.5-10.1); Carbon Dioxide 30 mmol/L (21-32); Chloride 103 mmol/L (98-108); Cholesterol 109 mg/dL (0-200); Estimated Glomerular Filt Rate > 60; Glucose 103 mg/dL (70-99); HDL Direct 37 mg/dL (40-60); LDL Cholesterol Calculated 45 mg/dL (<130); Osmolality Calculated 290 mOsm/kg (285-295); Potassium 4.7 mmol/L (3.5-5.1); Sodium 139 mmol/L (136-145); Triglycerides 137 mg/dL (0-150)
[2024-03-23 11:39] LABS: Creatine Kinase 1358 U/L (39-308)
== END 2024-03-23 10:00 | disposition home or self-care (01) ==
LOC: CHSLAB 10:18
PROVIDERS: PCP Internal Medicine; Visit Provider Internal Medicine
DX: E03.4 Atrophy of thyroid (acquired) (principal); E78.2 Mixed hyperlipidemia; R73.01 Impaired fasting glucose; R53.82 Chronic fatigue, unspecified; R74.8 Abnormal levels of other serum enzymes; N39.0 Urinary tract infection, site not specified
CPT/HCPCS: 36415; 80053; 80061; 81003; 82550; 83036; 85025

== ENCOUNTER 2024-10-27 11:11 | Outpatient (CLI) | payer OTHER, SELFPAY ==
--- OUTSIDE RECORDS SUMMARY | 2024-10-27 11:16 | XMS_ITS | Patient Health Record ---
Author Organization [facility] Address [address] [place], [place] [id number] Care Team Providers Care Commercial Lines Manager Name Role Phone ROSALVA DUPONT Unavailable [phone] Guillermina De La Paz Unavailable Unavailable Reason For Referral No Information Medications Medication SIG (Take, Route, Frequency, Duration) Notes Start Date End Date Status Medrol Dosepak ORAL Medrol DosepakOr iginal MedicationMedrol Dosepak *Reorder from Rapid RMS for eRx and Interaction Alerts* 07/01/2014 Active Plan Of Treatment No Information Insurance Providers Payer Name Payer Address Payer Phone Subscriber Number Group Number Insured Name Patient Relationship to Insured Coverage Start Date Coverage End Date [facility] ([facility]) ATTN CLAIMS [address] [place] [address] [id number] LAURA PARRA Self - patient is the insured
--- OUTSIDE RECORDS SUMMARY | 2024-10-27 11:16 | XMS_ITS | Clinical Summary ---
Author Organization [facility] Address [address] [place]: Epic Prelude ADT RENY BRYANT THAO [address] Care Team Providers Care Filter Press Operator Name Role Phone Unavailable Primary Care Provider Unavailabl e Medications alirocumab (Praluent Pen) 75 mg/mL Pen Injector Inject 75 mg by subcutaneous injection every 2 weeks. 2 mL 11 10/15/2022 11:19 AM CDT 2 Active evolocumab (Repatha SureClick) 140 mg/mL Pen Injector Inject 1 mL (140 mg total) under the skin every 14 (fourteen) days 2 mL 5 10/19/2024 4:18 PM CDT 5 Active Encounters Date Type Department Care Team Description 09/21/2024 External Device Data ST[facility] ABSTRACTION Provider, Abstract 2024 External Device Data [facility] ABSTRACTION Provider, Abstract from Last 3 Months Social History Tobacco Use Types Packs/Day Years Used Date Smoking Tobacco: Never Assessed Sex and Gender Information Value Date Recorded Sex Assigned at Not on file Legal Sex Male 3:27 PM CDT Gender Identity Not on file Sexual Orientation Not on file Plan of Treatment Health Maintenance Due Date Last Done Comments DTAP/TDAP/TD VACCINES (1 - Tdap) 08/25/1999 HEPATITIS B VACCINES (1 of 3 - 19+ 3-dose series) 08/25/1999 INFLUENZA VACCINE (#1) 2024 HPV VACCINES Aged Out No longer eligi ble based on patient's age to complete this topic Insurance RX [facility] [employer] (INTERNAL) nth [employer] Internal Plans RX [employer] Commercial
--- OUTSIDE RECORDS SUMMARY | 2024-10-27 11:16 | XMS_ITS | Clinical Summary ---
Author Organization [facility] Address [address] [place] [id number] Care Team Providers Care Extended Day Teacher Name Role Phone Guillermina De La Paz MD Primary Care Provider + [phone] Allergies Active Allergy Reactions Criticality Noted Date Comments Azithromycin Rpvwhns-Tlq-Raj Reductase Inhibitors Other (See comments) Low 01/15/2023 Elevated liver enzymes and myalgia's Medications levothyroxine (SYNTHROID, LEVOTHROID) 150 mcg tablet Take 1 tablet (150 mcg total) by mouth daily 1 04/10/20 18 Active nitroglycerin (NITROSTAT) 0.4 mg SL tablet DISSOLVE 1 TABLET UNDER TOUNGE NEEDED FOR CHEST PAIN UP TO 3 DOSES 5 MINS APART, THEN CALL 911 3 06/08/19 19 Active aspirin 81 mg enteric coated tablet Take 1 tablet (81 mg total) by mouth daily Active isosorbide mononitrate ER (IMDUR) 30 mg 24 hr tablet TAKE 1 TABLET BY MOUTH EVERY DAY 30 tablet 11 06/03/19 23 Active Repatha SureClick 140 mg/mL pen injector Inject 1 mL (140 mg total) under the skin every 14 (fourteen) days 2 mL 5 07/09/19 25 Active Additional Information Patient taking differently:140 mg subcutaneousEvery 21 days, Reported on 10/05/2024 metoprolol XL (TOPROL-XL) 50 mg extended release tablet TAKE 1 TABLET BY MOUTH EVERY DAY 90 tablet 08/27/19 25 Active Active Problems Problem Noted Date Diagnosed Date Coronary artery disease of n ative artery of [place] heart with stable angina pectoris 07/02/2018 Pain in shoulder 05/17/2016 Encounters Date Type Department Care Team Description 10/05/2024 11:15 AM CDT Office Visit [facility] Cardiology at [address] [place] [address] Baljit Castle MD Coronary artery disease of [place] artery of [place] heart with stable angina pectoris (Primary Dx) from Last 3 Months Medical History Medical History Date Comments Muscular dystrophy (HCC) Family History Medical History Relation Name Comments Diabetes Father Family history of diabetes mellitus - (Added by TW Conv) Heart disease Father Family history of cardiac disorder - (Added by TW Conv) Hypertension Father Family history of hypertension - (Added by TW Conv) Arthritis Mother Family history of arthritis - (Added by TW Conv) Relation Name Status Comments Father Alive Mother Alive Social History Tobacco Use Types Packs/Day Years Used Date Smoking Tobacco: Former Smokeless Tobacco: Current Snuff Tobacco Cessation:Ready to Q uit: Not Asked; Counseling Given: Not Answered Alcohol Use Standard Drinks/Week Comments Not Currently 0 (1 standard drink = 0.6 oz pur e alcohol) Sex and Gender Information Value Date Recorded Sex Assigned at Not on file Legal Sex Male 3:[address] Gender Identity Not on file Sexual Orientation Not on file Obstetrics History Last Filed Vital Signs Vital Sign Reading Time Taken Comments Blood Pressure 108/78 10/05/2024 11:09 AM CDT Pulse 78 10/05/2024 11:09 AM CDT Temperature - - Respiratory Rate - - Oxygen Saturation 95% 10/05/2024 11:09 AM CDT Inhaled Oxygen Concentration - - Weight 122 kg (269 lb) 10/05/2024 11:09 AM CDT Height 177.8 cm (5' 10) 10/05/2024 11:09 AM CDT Body Mass Index 38.6 10/05/2024 11:09 AM CDT Plan of Treatment Health Maintenance Due Date Last Done Comments Depression Screening 1980 Hepatitis C Screening 1980 DTaP/Tdap/Td Vaccine (1 - Tdap) 08/25/1991 Varicella Vaccines (1 of 2 - 13+ 2-dose series) 1993 Hepatitis B Screening 1998 Regular Well Visit/Exam 18-64 1998 Pneumococcal vaccine <65 (1 of 2 - PCV) 08/25/1999 Influenza Vaccine (Season Ended) 2024 02/09/2019, 12/18/2016 HPV Vaccines Aged Out No longer eligi ble based on patient's age to complete this topic Procedures Procedure Name Priority Date/Time Associated Diagnosis Comments POCT LIPID PANEL Routine 10/05/2024 11:0 5 AM CDT Coronary artery disease of [place] artery of [place] heart with stable angina pectoris from Last 3 Months Results * (ABNORMAL) POCT lipid panel (10/05/2024 11:05 AM CDT) Cholesterol, POC 152 <200 MG/DL HDL, POC 31(A) >=40 mg/dL Triglycerides, POC 295(A) <=149 mg/dL LDL Cholesterol POC 61 <=129 mg/dL Chol/HDL Ratio, POC 4.8 NONE Non-HDL Cholesterol, POC 120 NONE mg/dL Cholesterol Total, POC 152 30 - 199 mg/dL Capillary blood 10/05/2024 1 1:05 AM CDT Baljit Castle MD POINT OF CARE TEST ORDER JOSEF Final Result from Last 3 Months Insurance [facility] HMO [facility] HMO [facility] Care Teams Extended Day Teacher Relationship Specialty Start Date End Date Guillermina De La Paz MD [address] [place] [address] PCP - General 12/22/12
--- OUTSIDE RECORDS SUMMARY | 2024-10-27 11:16 | XMS_ITS | Clinical Summary ---
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 Gender Identity Not on file Sexual Orientation Not on file Plan of Treatment Health Maintenance Due Date Last Done Comments Annual Physical 08/25/1983 Hepatitis C 1998 DTaP, Tdap and Td Vaccines ( 1 - Tdap) 08/25/1999 Hepatitis B Vaccines (1 of 3 - 19+ 3-dose series) 08/25/1999 COVID-19 Vaccine (2023-2 5 season) 2023 HPV Vaccines Aged Out No longer eligi ble based on patient's age to complete this topic Meningococcal B Vaccine Aged Out No l onger eligible based on patient's age to complete this topic Meningococcal Vaccine Aged Out No brigette sunil eligible based on patient's age to complete this topic Pneumococcal Vaccine: Pediat rics (0 to 5 Years) and At-Risk Patients (6 to 49 Years) Aged Out No longer eligible b ased on patient's age to complete this topic RSV Immunizations Under 20 Months Aged Out No longer eligible based on patient's age to complete this topic
--- OUTSIDE RECORDS SUMMARY | 2024-10-27 11:16 | XMS_ITS | Referral Summary ---
Author Organization [facility] Address [address] [place] [id number] Care Team Providers Care Tank Erector Name Role Phone Guillermina De La Paz MD Primary Care Provider + [phone] Encounters Date Type Department Care Team Description 10/05/2024 11:15 AM CDT Office Visit [facility] Cardiology at [address] [place] [address] Baljit Castle MD Coronary artery disease of [place] artery of [place] heart with stable angina pectoris (Primary Dx) from Last 3 Months Allergies Active Allergy Reactions Criticality Noted Date Comments Azithromycin Ylwlvrh-Eys-Lgg Reductase Inhibitors Other (See comments) Low 01/15/2023 [...] artery disease of n ative artery of [place] heart with stable angina pectoris 07/02/2018 Pain in shoulder 05/17/2016 Social History Tobacco Use Types Packs/Day Years Used Date Smoking Tobacco: Former Smokeless Tobacco: Current Snuff Tobacco Cessation:Ready to Q uit: Not Asked; Counseling Given: Not Answered Alcohol Use Standard Drinks/Week Comments Not Currently 0 (1 standard drink = 0.6 oz pur e alcohol) Sex and Gender Information Value Date Recorded Sex Assigned at Not on file 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 Gender Identity Not on file Sexual Orientation Not on file Last Filed Vital Signs Vital Sign Reading [...] 10/05/2024 11:09 AM CDT Plan of Treatment Not on file Procedures Procedure Name Priority Date/Time Associated Diagnosis Comments POCT LIPID PANEL Routine 10/05/2024 11:0 5 AM CDT Coronary artery disease of [place] artery [place] heart with stable angina pectoris from Last [...] Final Result from Last 3 Months [facility] [id number] [place], [place] [address]O [facility] H[facility] Care Teams Tank Erector Relationship Specialty Start Date End Date Guillermina De La Paz MD [address] [place] [address] PCP - General 12/22/12
[2024-10-27 11:31] LABS: Hematocrit 48.4 % (40.0-54.0); Hemoglobin 16.7 g/dL (14.0-18.0); Immature Granulocyte Percent A 0.5 % (0.0-0.0); Lymphocytes Absolute Auto 1.89 K/mm3 (1.10-4.50); Mean Corpuscular HGB Conc 34.5 g/dL (32-36); Mean Corpuscular Hemoglobin 29.4 pg (27.0-31.0); Mean Corpuscular Volume 85.2 fL (78.0-102.0); Nucleated Red Blood Cells Absolute Auto 0.00 K/mm3 (0.00-0.00); Nucleated Red Blood Cells Perc 0.0 % (0-0.0); Platelet Count Result 260 K/mm3 (150-420); Red Blood Count 5.68 M/mm3 (4.70-6.10); White Blood Count 6.1 K/mm3 (4.8-10.8)
[2024-10-27 11:49] LABS: Hemoglobin A1C 5.7 % (<5.7)
[2024-10-27 12:12] LABS: Alanine Aminotransferase 86 U/L (6-50); Albumin Level 4.7 g/dL (3.5-5.1); Alkaline Phosphatase 45 U/L (38-126); Anion Gap 7 mmol/L (4-12); Aspartate Amino Transferase 58 U/L (17-59); Bilirubin,Total 0.7 mg/dL (0.2-1.3); Blood Urea Nitrogen 18 mg/dL (9-20); Calcium 9.9 mg/dL (8.4-10.2); Carbon Dioxide 26 mmol/L (22-30); Chloride 108 mmol/L (98-107); Cholesterol 189 mg/dL (0-200); Creatine Kinase 246 U/L (55-170); Estimated Glomerular Filt Rate > 60; Glucose 97 mg/dL (65-110); HDL Direct 37 mg/dL; Osmolality Calculated 293 mOsm/kg (285-295); Potassium 4.8 mmol/L (3.4-5.0); Sodium 141 mmol/L (137-145); Total Protein 7.3 g/dL (6.3-8.2); Triglycerides 291 mg/dL (<150)
[2024-10-27 12:27] LABS: Free T3 3.94 pg/mL (2.18-3.98)
[2024-10-27 12:28] LABS: Free T4 Free Thyroxine 1.01 ng/dL (0.78-2.19)
[2024-10-27 12:42] LABS: Thyroid Stimulating Hormone 1.240 uIU/mL (0.465-4.680)
[2024-10-27 15:53] LABS: Add Urine Microscopic? NO; Appearance Urine Clear (Clear); Glucose Urine UA Negative (Negative); Leukocyte Esterase Ur Negative LEU/UL (Negative); Nitrate Urine Negative (Negative); Specific Grav Ur 1.010 (1.010-1.020)
== END 2024-10-27 11:12 | disposition home or self-care (01) ==
LOC: CHSLAB 11:13
PROVIDERS: PCP Internal Medicine; Visit Provider Internal Medicine
DX: E03.4 Atrophy of thyroid (acquired) (principal); E78.2 Mixed hyperlipidemia; R73.01 Impaired fasting glucose; N39.0 Urinary tract infection, site not specified
CPT/HCPCS: 36415; 80053; 80061; 81003; 82085; 82550; 83036; 84439; 84443; 84481; 85025